=== PATIENT | male | born 1990 | race Caucasian/White ===

== ENCOUNTER → 2023-06-30 14:02 | Outpatient (BNVA) | payer OTHER, SELFPAY | PROVIDERS: Family Provider Nurse Practitioner Family; PCP Family Medicine; Visit Provider Family Medicine | DX: F41.1 Generalized anxiety disorder (principal) | CPT/HCPCS: 80053; 80061; 84439; 84443; 85025 ==

== ENCOUNTER 2023-09-16 08:35 | Emergency (ER) | payer OTHER, SELFPAY ==
[2023-09-16 08:49] VITALS: BP 112/76; PULSE 112; RESP 18; TEMP 37.7; O2SAT 96
--- NOTE | 2023-09-16 08:54 | XRR_ITS ---
PROCEDURE INFORMATION: Exam: XR Chest Exam date and time: 09/16/2023 9:02 AM Age: 33 years old Clinical indication: Cough and fever TECHNIQUE: Imaging protocol: Radiologic exam of the chest. Views: 1 view. COMPARISON: No relevant prior studies available. FINDINGS: Lungs: There is a right mid lung zone consolidation. Retrocardiac infiltrates. Poor inspiratory effort. Pleural spaces: Unremarkable. No pleural effusion. No pneumothorax. Heart/Mediastinum: Unremarkable. No cardiomegaly. Bones/joints: Unremarkable. XR/XR chest 1V portable [id number] IMPRESSION: Right mid lung zone and retrocardiac infiltrates, suggestive of pneumonia.
--- NOTE | 2023-09-16 08:56 | W.ED.FEVER ---
HPI - Fever General: Chief Complaint: Fever Stated Complaint: SOB, cough fever Time Seen by Provider: 09/16/23 08:37 Source: patient Mode of arrival: ambulatory Limitations: no limitations History of Present Illness: 33-year-old male states he had cough congestion fevers body aches over the last 2 days states that they have had multiple children sick with parainfluenza. He had a fever of 102 this morning at home. States he feels like he cannot get deep breaths then and is having some pain from coughing. Associated symptoms: Reports chills; Deny abdominal pain, chest pain, diarrhea, headache(s), nausea or vomiting Review of Systems Const: Reports: fever(s), chills and body aches; Denies: change in appetite ENMT: Denies: throat pain or dental pain Card: Denies: chest pain Resp: Reports: dyspnea and non-productive cough GI: Denies: abdominal pain, nausea, vomiting or diarrhea Musc: Denies: neck pain or back pain Skin/Breast: Denies: rash Neuro: Denies: headache(s) PFSH ED PFSH: Medical History Insomnia Nicotine dependence, chewing tobacco, uncomplicated Generalized anxiety disorder Family History Father CAD (coronary artery disease) Hyperlipidemia Hypertension Social History Smoking and tobacco/nicotine status: current every day tobacco/nicotine user smokeless tobacco Smokeless tobacco user: chewing tobacco Smokeless tobacco details: 1 can a day m-f Alcohol intake: current Alcohol intake frequency: holidays/special occasions only Substance/Drug Use: never Adopted: No service: No Current occupation: [email or web address] Current occupational exposures/hazards: Yes Current gender identity: Male Physical Exam Const: COMMON NORMALS: no acute distress, patient oriented x3 and healthy appearing HENMT: COMMON NORMALS: normocephalic and atraumatic HEAD & SCALP: normocephalic and atraumatic Neck/C-Spine: COMMON NORMALS: full ROM and supple Chest: COMMONS NORMALS: normal inspection of the chest and normal palpation of entire chest wall Resp: COMMON NORMALS: No retractions and No use of accessory muscles AUSCULTATION: rales on the right Cardio: COMMON NORMALS: regular rhythm and No murmurs present (Cardio) RATE: tachycardic RHYTHM: regular rhythm GI: COMMON NORMALS: Normal to inspection, nondistended, normoactive bowel sounds present, Soft to palpation, non-tender and no masses PALPATION: Yes Soft to palpation Extremity: COMMON NORMALS: normal to inspection and full ROM Neuro: COMMON NORMALS: patient oriented x3, moves all extremities and no focal motor deficits Psych: COMMON NORMALS: mental status grossly normal, Normal thought process present and cooperative THOUGHT PROCESS: Normal thought process present Skin: COMMON NORMALS: no rashes or lesions noted and no wounds GENERAL SKIN EXAM: no rashes or lesions noted Course Vital Signs: Vital signs: Vital Signs Temperature 99.9 F H 09/16/23 08:49 Pulse Rate 94 09/16/23 09:44 Respiratory Rate 16 09/16/23 09:43 Blood Pressure 128/76 09/16/23 09:43 Pulse Oximetry 97 09/16/23 09:44 Oxygen Delivery Me thod Room Air 09/16/23 09:44 MDM - Fever Medical Decision Making Patient presents here with cough fever he does have a lobar pneumonia he feels improved he does not want to be admitted did give him IV Levaquin here we will start him on p.o. Levaquin at home he is to monitor his oxygen at home if he worsens he is return he understands agrees to plan Medical Records I reviewed the patient's medical records. Lab Data I reviewed the patient's lab results. 09/16/23 08:53 09/16/23 08:53 Radiology Impressions Chest X-Ray 09/16/23 08:54 IMPRESSION: Right mid lung zone and retrocardiac infiltrates, suggestive of pneumonia. Laboratory Results WBC 16.64 10^3/uL (3.29-11.43) H 09/16/23 08:53 RBC 5.01 10^6/uL (3.85-5.65) 09/16/23 08:53 Hgb 15.60 g/dL (11.27-16.99) 09/16/23 08:53 Hct 44.7 % (37-53) 09/16/23 08:53 MCV 89.2 fl (82-101) 09/16/23 08:53 MCH 31.1 pg (27-33) 09/16/23 08:53 MCHC 34.9 g/dL (30-55) 09/16/23 08:53 RDW 12.3 % (12.1-15.1) 09/16/23 08:53 Plt Count 272 10^3/cmm (157-399) 09/16/23 08:53 MPV 9.2 fL (7.4-10.4) 09/16/23 08:53 Neut % (Auto) 85.6 % 09/16/23 08:53 Lymph % (Auto) 6.5 % 09/16/23 08:53 Garfield % (Auto) 7.2 % 09/16/23 08:53 Eos % (Auto) 0.1 % 09/16/23 08:53 Baso % (Auto) 0.2 % 09/16/23 08:53 Neut # (Auto) 14.26 10^3/uL (1.8-7.7) H 09/16/23 08:53 Lymph # (Auto) 1.1 10^3/uL (0.8-4.8) 09/16/23 08:53 Garfield # (Auto) 1.2 10^3/uL (0.2-0.9) H 09/16/23 08:53 Eos # (Auto) 0.0 10^3/uL (0.0-0.8) 09/16/23 08:53 Baso # (Auto) 0.0 10^3/uL (0.0-0.1) 09/16/23 08:53 Nucleated RBC % (auto) 0 % 09/16/23 08:53 Nucleated RBCs # 0.0 /100WBC 09/16/23 08:53 Sodium 135 mmol/L (136-145) L 09/16/23 08:53 Potassium 3.8 mmol/L (3.5-5.1) 09/16/23 08:53 Chloride 102 mmol/L (98-107) 09/16/23 08:53 Carbon Dioxide 22 mmol/L (22-29) 09/16/23 08:53 Anion Gap 14.8 (5-19) 09/16/23 08:53 BUN 13 mg/dL (6-20) 09/16/23 08:53 Creatinine 1.1 mg/dL (0.7-1.2) 09/16/23 08:53 GFR Calculation 77.6 mL/min (90-130) L 09/16/23 08:53 Glucose 111 mg/dL (65-115) 09/16/23 08:53 Calculated Osmolality 281 mOsm/kg (285-295) L 09/16/23 08:53 Lactic Acid 1.3 mmol/L (0.5-2.2) 09/16/23 08:53 Calcium 9.2 mg/dL (8.5-10.5) 09/16/23 08:53 Total Bilirubin 0.7 mg/dL (0.15-1.2) 09/16/23 08:53 AST 38 U/L (0-40) 09/16/23 08:53 ALT 59 U/L (0-41) H 09/16/23 08:53 Alkaline Phosphatase 101 U/L (40-130) 09/16/23 08:53 Total Protein 7.5 g/dL (6.6-8.7) 09/16/23 08:53 Albumin 3.9 g/dL (3.5-5.2) 09/16/23 08:53 Globulin 3.6 g/dL (1.3-4.6) 09/16/23 08:53 XR interpretation done by ED provider, pending radiology final review ED provider radiology interpretation(s): right lobar pneumonia Discharge Plan Discharge Patient Disposition: Home Clinical Impression: Community acquired pneumonia Condition: Stable Prescriptions: New levofloxacin 750 mg tablet 750 mg PO DAILY 7 Days Qty: 7 0RF No Action buspirone 10 mg tablet 10 mg PO BID Qty: 180 1RF trazodone 50 mg tablet 50 mg PO .qhs Qty: 90 1RF Rx Instructions: take 30 minutes before bedtime Discharge Orders: Discharge ED (Routine); Ordered 09/16/23 Ordered By: Yoan Pro Referrals: Preston Brasher MD [Primary Care Provider] - 4-7 days Discharge Diet: Advance as tolerated Discharge Activity: Resume usual activity Patient Instructions: Pneumonia (ED) Coding Level of Care Code ED [employer] Associate for Anu Mcgregor
[2023-09-16 09:02] LABS: Basophils % 0.2 %; Eosinophils % 0.1 %; Hematocrit 44.7 % (37-53); Lymphocytes # 1.1 10^3/uL (0.8-4.8); Lymphocytes % 6.5 %; Mean Corpuscular HGB Conc 34.9 g/dL (30-55); Mean Corpuscular Hemoglobin 31.1 pg (27-33); Mean Corpuscular Volume 89.2 fl (82-101); Mean Platelet Volume 9.2 fL (7.4-10.4); Monocytes # 1.2 10^3/uL (0.2-0.9); Monocytes % 7.2 %; Neutrophils # 14.26 10^3/uL (1.8-7.7); Neutrophils % 85.6 %; Nucleated Red Blood Cells % 0 %; Platelet Count 272 10^3/cmm (157-399); Red Blood Count 5.01 10^6/uL (3.85-5.65); Red Cell Distribution Width 12.3 % (12.1-15.1); White Blood Count 16.64 10^3/uL (3.29-11.43)
[2023-09-16] MEDS: dexamethasone 10 mg/mL INJ IVP (09:06)
[2023-09-16] MEDS: ketorolac 30 mg/mL INJ IVP (09:06)
[2023-09-16] MEDS: sodium chloride 0.9% 1,000 ML 999 ML IV ×2 (09:07→09:12)
[2023-09-16 09:16] LABS: Alanine Aminotransferase 59 U/L (0-41); Albumin Level 3.9 g/dL (3.5-5.2); Alkaline Phosphatase 101 U/L (40-130); Anion Gap 14.8 (5-19); Aspartate Amino Transferase 38 U/L (0-40); Blood Urea Nitrogen 13 mg/dL (6-20); Calcium 9.2 mg/dL (8.5-10.5); Carbon Dioxide 22 mmol/L (22-29); Chloride 102 mmol/L (98-107); Creatinine Clr Calc Pharmacy 109.9522; Globulin 3.6 g/dL (1.3-4.6); Glomerular Filtration Rate 77.6 mL/min (90-130); Glucose 111 mg/dL (65-115); Osmolality Calculated 281 mOsm/kg (285-295); Potassium 3.8 mmol/L (3.5-5.1); Sodium 135 mmol/L (136-145); Total Bilirubin 0.7 mg/dL (0.15-1.2); Total Protein 7.5 g/dL (6.6-8.7)
[2023-09-16 09:24] LABS: Lactic Sepsis W/Reflex 1.3 mmol/L (0.5-2.2)
[2023-09-16] MEDS: levofloxacin-dextrose 5 % 750 MG/150 ML PREMIX 100 MG IV (09:40)
[2023-09-16 09:43] VITALS: BP 128/76; PULSE 92; RESP 16; O2SAT 97
[2023-09-16 09:44] VITALS: PULSE 94; O2SAT 97
[2023-09-16 10:45] VITALS: PULSE 96; RESP 16; O2SAT 98
[2023-09-16 11:49] LABS: Adenovirus Not Detected (NOT DETECT); Chlamydia Pneumoniae Not Detected (NOT DETECT); Coronavirus 229E,HKU1,NL63,OC4 Not Detected (NOT DETECT); Human Metapneumovirus Not Detected (NOT DETECT); Human Rhinovirus/Enterovirus Not Detected (NOT DETECT); Influenza A Not Detected (NOT DETECT); Influenza A H1 Not Detected (NOT DETECT); Influenza A H1-2009 Not Detected (NOT DETECT); Influenza A H3 Not Detected (NOT DETECT); Influenza B Not Detected (NOT DETECT); Mycoplasma Pneumoniae Not Detected (NOT DETECT); Parainfluenza Virus Type 1 Not Detected (NOT DETECT); Parainfluenza Virus Type 2 Not Detected (NOT DETECT); Parainfluenza Virus Type 3 Not Detected (NOT DETECT); Parainfluenza Virus Type 4 Not Detected (NOT DETECT); Respiratory Syncytial Virus A Not Detected (NOT DETECT); Respiratory Syncytial Virus B Not Detected (NOT DETECT); SARS-COV-2 Not Detected (NOT DETECT)
== END 2023-09-16 11:22 | disposition home or self-care (01) ==
PROVIDERS: Emergency Provider Emergency Medicine; PCP Family Medicine
DX: J18.9 Pneumonia, unspecified organism (principal); F17.220 Nicotine dependence, chewing tobacco, uncomplicated
CPT/HCPCS: 71045; 80053; 83605; 85025; 87040; 87486; 87581; 87633; 96361; 96374; 96375; 99284; J1100; J1885; J1956; J7030

== ENCOUNTER 2024-03-01 19:05 | Emergency (ER) | payer OTHER, SELFPAY ==
[2024-03-01 19:12] VITALS: BP 158/78; PULSE 102; RESP 17; TEMP 36.8; O2SAT 100; BMI 28.7
[2024-03-01] MEDS: tetanus-dipt-pertussis 0.5 mL SDV IM (19:37)
[2024-03-01] MEDS: lidocaine-epi 2% 20 mL INJ INJECTION (19:37)
--- NOTE | 2024-03-01 19:41 | PC.NURSE ---
lac cleaned with sterile water/ betadine mix and gauze.
[2024-03-01] MEDS: cephALEXin 500 mg Capsule PO (19:56)
[2024-03-01 20:01] VITALS: BP 137/102; PULSE 92; RESP 18; O2SAT 99
--- NOTE | 2024-03-01 23:51 | W.ED.WOUNDLC ---
HPI - Wound/Laceration General: Chief Complaint: Wound/Laceration Stated Complaint: wrist lac accident Time Seen by Provider: 03/01/24 19:23 Source: patient Mode of arrival: ambulatory Limitations: no limitations History of Present Illness: Patient is a 33-year-old male presenting to the emergency department with a laceration to left wrist prior to arrival. Has a previous laceration to the same wrist with the same mechanism, as he was skin in the [place] and blade slipped and cut his wrist. States there is quite a bit of bleeding initially, this has since been stopped with direct pressure. There is no active bleeding at this time. Tetanus not up-to-date, will be updated at this time. States that his left arm feels somewhat swollen and pain with range of motion, but also states this happened with last time he cut his wrist. No other symptoms at this time. Onset (ago): hour(s) Extremity Location: Left: wrist Patient tetanus UTD: No Context: accidental Associated symptoms: Denies chills, fever(s), nausea or vomiting Treatments prior to arrival: bandage Related Data Previous Rx's Medication Instructions Recorded buspirone 10 mg tablet 10 mg PO BID #180 tabs 09/15/23 trazodone 50 mg tablet 50 mg PO .qhs #90 tabs 09/15/23 albuterol sulfate 2.5 mg/3 mL 2.5 mg (3 mL) inhalation Q4H PRN 09/16/23 (0.083 %) solution for nebulization shortness of breath or wheezing #90 mL prednisone 20 mg tablet 40 mg (2 x 20 mg) PO DAILY 5 days 09/19/23 #10 tabs cephalexin 500 mg capsule 500 mg PO BID 7 days #14 caps 03/01/24 Allergies Allergy/AdvReac Type Severity Reaction Status Date / Time Penicillins Allergy Mild ALGY-Anaphy Verified 09/22/23 12:56 laxis Review of Systems General: Reports: 10 or more systems reviewed and unremarkable except in HPI and below Const: Denies: fever(s) or chills Card: Denies: chest pain Resp: Denies: dyspnea GI: Denies: abdominal pain, nausea, vomiting or diarrhea Musc: Denies: extremity pain or joint pain Skin/Breast: Reports: skin pain, skin tenderness and new lesions (Laceration to left wrist); Denies: rash Neuro: Denies: headache(s) PFSH ED PFSH: Medical History Insomnia Nicotine dependence, chewing tobacco, uncomplicated Generalized anxiety disorder Family History Father CAD (coronary artery disease) Hyperlipidemia Hypertension Social History Smoking and tobacco/nicotine status: current every day tobacco/nicotine user smokeless tobacco Smokeless tobacco user: chewing tobacco Smokeless tobacco details: 1 can a day m-f Alcohol intake: current Alcohol intake frequency: holidays/special occasions only Substance/Drug Use: never Adopted: No service: No Current occupation: [employer] Current occupational exposures/hazards: Yes Current gender identity: Male Physical Exam Const: COMMON NORMALS: no acute distress, average body habitus, patient oriented x3, no limitations, healthy appearing, alert and well nourished HENMT: COMMON NORMALS: normocephalic and atraumatic HEAD & SCALP: normocephalic and atraumatic Neck/C-Spine: COMMON NORMALS: full ROM, no lymphadenopathy, supple and no meningeal signs Resp: COMMON NORMALS: normal respiratory effort, No use of accessory muscles and clear to auscultation bilaterally AUSCULTATION: clear to auscultation bilaterally Cardio: COMMON NORMALS: regular rate and regular rhythm RATE: regular rate RHYTHM: regular rhythm Extremity: COMMON NORMALS: full ROM and capillary refill normal Neuro: COMMON NORMALS: patient oriented x3 SENSORIUM/ORIENTATION: Yes alert MENINGEAL SIGNS: Yes no meningeal signs Skin: COMMON NORMALS: turgor normal NARRATIVE SKIN EXAM: There is a small 2 cm linear laceration to superficial ulnar aspect of left wrist with no active bleeding, contamination, or foreign body GENERAL SKIN EXAM: turgor normal Procedures Laceration Laceration 1: Site: upper extremity (Wrist) Side (If applicable): left Size (cm): 2 Description: linear and clean Depth: simple, single layer Local Anesthetic: lidocaine 2% and with epi Amount of anesthesia used (mL): 1 Pre-repair: wound explored, irrigated extensively and deep structures intact Skin layer closed with: other (Prolene) Size (cm): 5-0 Number of sutures: 3 Technique: simple, interrupted Course Vital Signs: Vital signs: Vital Signs Temperature 98.3 F 03/01/24 19:12 Pulse Rate 92 03/01/24 20:01 Respiratory Rate 18 03/01/24 20:01 Blood Pressure 137/102 03/01/24 20:01 Pulse Oximetry 99 03/01/24 20:01 Oxygen Delivery Me thod Room Air 03/01/24 19:12 MDM - Wound/Laceration Medical Decision Making Patient's wound had been irrigated extensively with Betadine normal saline solution. Was anesthetized with lidocaine and repaired, see procedure note. This procedure was tolerated well with no blood loss. His tetanus was updated today. He was also started on antibiotics due to the nature in which she was injured. Wound care instructions were given, he is to have the sutures out in 5 to 7 days and take antibiotics as prescribed. Discussed case with Dr. Charlton. No radiology studies performed this visit Discharge Plan Discharge Patient Disposition: Home Clinical Impression: Laceration of left wrist Condition: Stable Prescriptions: New cephalexin 500 mg capsule 500 mg PO BID 7 Days Qty: 14 0RF No Action buspirone 10 mg tablet 10 mg PO BID Qty: 180 1RF trazodone 50 mg tablet 50 mg PO .qhs Qty: 90 1RF Rx Instructions: take 30 minutes before bedtime prednisone 20 mg tablet 40 mg PO DAILY 5 Days Qty: 10 0RF albuterol sulfate 2.5 mg /3 mL (0.083 %) solution for nebulization 2.5 mg INHALATION Q4H PRN (Reason: shortness of breath or wheezing) Qty: 90 0RF Discharge Orders: Discharge ED (Routine); Ordered 03/01/24 Ordered By: Tony Torres Referrals: Preston Brasher MD [Primary Care Provider] - Patient Instructions: Laceration (ED) Activity Restrictions/Additional Instructions: Sutures out in 5 to 7 days. Keep wound out of water for the first 48 hours, afterwards when you clean he may dab with warm soap and water and then dab dry afterwards. Take antibiotics as prescribed. Monitor for any signs of infection and return if so. Follow-up with primary care otherwise. Coding Level of Care Code ED [employer] Frier for Anu Mcgregor
== END 2024-03-01 20:06 | disposition home or self-care (01) ==
PROVIDERS: Emergency Provider Physician Assistant; PCP Family Medicine
DX: S61.512A Laceration without foreign body of left wrist, initial encounter (principal); W26.0XXA Contact with knife, initial encounter; F17.220 Nicotine dependence, chewing tobacco, uncomplicated
CPT/HCPCS: 12001; 90471; 90715; 99283